=== PATIENT | female | born 1950 | race Caucasian/White ===

== ENCOUNTER 2018-03-30 09:58 | Day surgery (SDC) | payer SELFPAY ==
--- NOTE | 2018-03-29 07:41 | PM.PREOP ---
Pre-operative Note Interval Note Changes: No
[2018-03-30 11:54] VITALS: BP 127/81; PULSE 67; RESP 15; TEMP 36.1; O2SAT 99; BMI 27.3
[2018-03-30] MEDS: LACTATED RINGERS 1,000 ML 42 ML IV ×2 (12:02→15:09)
[2018-03-30] MEDS: LIDOCAINE 1% W/EPI 3 ML, SODIUM CHLORIDE 0.9% 2 ML, HYALURONIDASE 150 UNIT INJ (14:12)
[2018-03-30] MEDS: LIDOCAINE 2% W/EPI 3 ML, BUPIVACAINE 0.5% (PF) 2 ML, HYALURONIDASE 150 UNIT INJ (14:14)
[2018-03-30] MEDS: PROPARACAINE 0.5% OPHTH SOL 2 DROPS EYE-BOTH (14:15)
[2018-03-30] MEDS: NEOMYCIN/POLY/DEX OPHTH OINT 1 APPLIC EYE-BOTH (16:13)
[2018-03-30 16:20] VITALS: BP 132/82; PULSE 77; RESP 16; TEMP 36.4; O2SAT 95
[2018-03-30] MEDS: ACETAMINOPHEN 325 MG TABLET 650 MG PO (16:48)
[2018-03-30 17:00] VITALS: BP 138/92; PULSE 72; RESP 16; TEMP 36.7; O2SAT 94
--- NOTE | 2018-03-30 17:06 | P.OP.PRE_ITS ---
Pre-operative Note Interval Note Changes: No
--- NOTE | 2018-03-30 17:15 | P.OP_ITS ---
Operative Date/Time/Diagnoses Date of procedure: 03/30/18 Time of procedure: 13:30 Procedure & Clinicians Procedure: Date of service: March 30, 2008 Preoperative diagnoses: 1. Bilateral upper lid dermatochalasis. 2. 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 Postoperative diagnoses: 1. Bilateral upper lid dermatochalasis 2. Bilateral lower lid dermatochalasis Procedure: Bilateral upper blepharoplasty, cosmetic Bilateral lower lid blepharoplasty, cosmetic with bilateral horizontal lid shortening, cosmetic. Surgeon: Josie Mcfarlane MD Complications: none Specimen: None Blood loss: Less than 3 mL Anesthesia: Local infiltration with monitored standby. Anesthesiologist: Artemio Yun M.D. Indications: Bilateral upper lids overhanging superior vision. Lower lid laxity with herniated fat pads. Preoperative external photographs taken. Visual field loss within 20? of fixation. Patient's insurance the night is functional and patient decided to continue as a cosmetic patient. Procedure: In the preoperative holding area the amount skin and subcutaneous tissue to be removed was marked with indelible ink. The contours were carefully checked for symmetry and planned procedure discussed with the patient. Patient had severe underlying facial asymmetry and she understood that this would still remain after surgery. The patient was taken to the operating room. IV sedation was given. Proparacaine drops were placed in both eyes for comfort. Local infiltration of anesthetic 2.5 cc into each upper and lower lid, consisting of 1% xylocaine with epinephrine, normal saline and 1 cc hyluronidase was placed. This was then supplemented with full strength 2% xylocaine with epinephrine, 0.5% bupivacaine , and 1 cc hyalurondase. The face was prepped in an open manner. Attention was placed to the right upper lid. Using the previous haider a number 15. Bard-Fareed blade was used to incise a skin muscle flap. The flap was lifted and removed. Cautery was applied as needed. Contouring of the muscle belly was also performed. Exploration of the nasal and preoperneurotic fat pads were performed removal and contouring with hemostat and scissors as well as cautery were performed. The lid was then closed with running and interrupted 6 0 Vicryl sutures. Attention was then placed to the lower lid. A sub ciliary incision was made 2 mm below the lash line. Blunt dissection with scissors was then performed. Exploration and removal of the nasal medial and lateral fat pads were performed through that external approach. There was minimal bleeding. A small amount of skin was removed from the lid margin. A lateral canthotomy of 1 cm was placed. Lysis of the inferior canthal tendon was performed. A tarsal strip was performed without removal of tissue and removal of the anterior and posterior lamella. The hair follicles were removed. A 4 0 Mersilene suture was used to anchor the tarsal strip to the periosteum in a double arm fashion. Good contour resulted. The lateral canthus was reconstructed using interrupted and running 6 0 Vicryl suture. The lower lid was then closed with running and interrupted 6 0 Vicryl suture. The upper lid was then closed with running and interrupted 6 0 Vicryl suture. Same procedure was repeated for the left upper , lower lid , and lateral canthus. The Betadine was removed. Maxitrol ointment was placed to suture line. She returned to recovery room in stable condition. Instructions for postoperative cold packs were reviewed. Josie Mcfarlane MD. Same procedure as scheduled: Yes
--- NOTE | 2018-03-30 17:28 | SUR.PHASEII ---
1705 pt dressed , steady on feet, ready to go home
== END 2018-03-30 17:10 | disposition home or self-care (01) ==
LOC: OR 10:00
PROVIDERS: Family Provider Specialist; PCP Family Medicine Geriatric Medicine; Visit Provider Ophthalmology
PROC: 080N0ZZ Alteration of Right Upper Eyelid, Open Approach (ICD-10-PCS; CPT 15823; principal; 2018-03-30 12:15)
DX: Z41.1 Encounter for cosmetic surgery (principal); H02.834 Dermatochalasis of left upper eyelid; H02.831 Dermatochalasis of right upper eyelid
CPT/HCPCS: 15823; 15821; J2250; J2704; J3010; J3470